=== PATIENT | male | born 1995 | race Caucasian/White ===

== ENCOUNTER 2022-03-09 18:23 | Emergency (ER) | payer SELFPAY ==
[2022-03-09 18:32] VITALS: BP 124/75; PULSE 102; RESP 20; TEMP 37.2; O2SAT 98; BMI 31.2
[2022-03-09 19:36] LABS: Appearance Urine Cloudy (Clear); Bilirubin Urine 1+ (Negative); Blood Urine 3+ (Negative); Color Urine Red (Yellow); Glucose Urine Negative (Negative); Ketones Urine Trace (Negative); Leukocyte Esterase Urine Trace (Negative); Nitrite Urine Negative (Negative); Protein Urine 3+ (Negative); Specific Gravity Urine 1.025 (1.000-1.030); Urobilinogen Urine 0.2 (0.2-1.0); pH Urine 7.5 (5.0-8.5)
[2022-03-09 19:37] LABS: RBC Urine >100 (0-2); Squamous Epithelial Cell Urine Few (None-Few); WBC Urine 25-50 (0-5)
--- NOTE | 2022-03-09 20:16 | CRLHL7_ITS ---
For Patients: As a result of the Century Cures Act, medical imaging exams and procedure reports are released immediately into your electronic medical record. You may view this report before your referring provider. If you have questions, please contact your health care provider. CLINICAL INFORMATION: Hematuria. Concern for nephrolithiasis. TECHNIQUE: Noncontrast CT of the abdomen and pelvis was obtained. Coronal and sagittal reformatted images were obtained. Radiation Dose Estimate (Total Exam DLP): 964 mGy-cm. COMPARISON: Non. FINDINGS: Lower Chest: Lung bases: 1.3 cm rounded subpleural nodule in the right middle lobe abutting the minor fissure most likely represents a focus of rounded atelectasis. Heart/Pericardium: Unremarkable. Abdomen/Pelvis: Liver: Demonstrates diffuse decreased attenuation consistent with fatty infiltration. Gallbladder: Unremarkable. Spleen: Unremarkable. Adrenal glands: Unremarkable. Kidneys: No hydronephrosis or radiopaque stone in either collecting system. Pancreas: Unremarkable. Lymph nodes: No retroperitoneal, mesenteric, inguinal, or pelvic adenopathy by CT criteria. Vascular: Abdominal aorta normal in caliber. Bowel: Evaluation is limited without enteric contrast. Grossly unremarkable. Urinary bladder: Limited evaluation due to underdistention. No gross pathology. Reproductive structures: Unremarkable for patient`s age. No abdominal/pelvis ascites or free intraperitoneal air. Musculoskeletal: Small fat containing left inguinal hernia. No focal lytic or blastic lesions. IMPRESSION: 1. No evidence for radiopaque stone in either renal collecting system. 2. 1.3 cm subpleural right middle lobe pulmonary nodule which is most consistent with a focus of rounded atelectasis. Recommend comparison with prior imaging to assure stability. If no prior imaging is available for review consider short-term follow-up chest CT in 3-6 months. Please note that all CT scans at this facility use dose modulation, iterative reconstruction, and/or weight-based dosing when appropriate to reduce radiation dose to as low as reasonably achievable. Dictated by Linden Ray MD @ 03/09/2022 9:01:55 PM (Electronically Signed)
--- NOTE | 2022-03-09 20:22 | ED.MALEGU ---
HPI - Male Genitourinary General Chief complaint: Urogenital Problems, Male Stated complaint: Abdominal pain Time Seen by Provider: 03/09/22 20:11 History of Present Illness HPI Narrative: Pt presents with a 1 day history of blood in his urine. Pt states that he has a history of urinary tract infections in the past but not recently. Pt describes mild discomfort in the suprapubic region but no other abd pain or flank pain. He has no signs of systemic infection such as fever or chills. No incontinence. No new sexual partners. Pt is uncertain how previous urinary issues have been treated. Pt has no chest pain or shortness of breath. Pain is a dullness. No radiation. No other significant symptoms. Pt seen with the aid of the sinhala interpretor. Related Data Allergies Allergy/AdvReac Type Severity Reaction Status Date / Time No Known Drug Allergies Allergy Verified 03/09/22 18:49 Review of Systems Status of ROS: Reports: 10 or more systems reviewed and unremarkable except as noted in History and below PFSH PFSH Social History Smoking Status: Never smoker Do you use any of these nicotine containing products: None Second hand tobacco smoke exposure: Yes How often do you have a drink containing alcohol: monthly or less How many standard drinks containing alcohol do you have on a typical day: 1 or 2 How often do you have six or more drinks on one occasion: Less than monthly AUDIT-C Alcohol total score: 2 Non-prescribed substance use: denies use service: No Exam Narrative: Exam Narrative: EXAM GENERAL: Patient appears comfortable and well. EYES: No scleral icterus. ENT: Tympanic membranes and oropharynx normal. THYROID: no thyroid nodules or thyromegaly. LYMPH: No supraclavicular or cervical lymphadenopathy. SKIN: Visible skin seen during exam normal or with benign process only. EXT: No dependent lower extremity pedal edema. HEART: Regular rate and rhythm with no murmurs, rubs, or gallops. LUNGS: Clear to auscultation bilaterally with no crackles or wheezes. ABD: Soft, non tender, non distended. PSYCH: Good eye contact, speech is not pressured. Const: Vital Signs, click to edit/add: Vital Signs - 24 hr 03/09/22 18:32 Temperature 98.9 F Pulse Rate [Pulse Oximeter] 102 H Respiratory Rate 20 Blood Pressure [Ri ght Upper Arm] 124/75 Pulse Oximetry 98 Oxygen Delivery Me thod Room Air Course Course Hospital Course: CT of the abd showed no significant urinary abnormalities. Labs are reassuring. Urine sent for culture. Reevaluation(s) Reevaluation #1: Feeling fine. Results reviewed with pt. Time: 22:27 Vital Signs Vital signs: Initial Vital Signs Temperature 98.9 F 03/09/22 18:32 Temperature Source Temporal Artery Scan 03/09/22 18:32 Pulse Rate 102 H 03/09/22 18:32 Pulse Rhythm 03/09/22 18:32 Respiratory Rate 20 03/09/22 18:32 Blood Pressure 124/75 03/09/22 18:32 Blood Pressure Mean 91 03/09/22 18:32 Blood Pressure Position Supine 03/09/22 18:32 Pulse Oximetry 98 03/09/22 18:32 Oxygen Delivery Method 03/09/22 18:32 Vital Signs Temperature 98.9 F 03/09/22 18:32 Pulse Rate 102 H 03/09/22 18:32 Respiratory Rate 20 03/09/22 18:32 Blood Pressure 124/75 03/09/22 18:32 Pulse Oximetry 98 03/09/22 18:32 Oxygen Delivery Method 03/09/22 18:32 Temperature 98.9 F 03/09/22 18:32 Pulse Rate 102 H 03/09/22 18:32 Respiratory Rate 20 03/09/22 18:32 Blood Pressure 124/75 03/09/22 18:32 Pulse Oximetry 98 03/09/22 18:32 Oxygen Delivery Method 03/09/22 18:32 MDM - Male Genitourinary MDM Narrative Medical decision making narrative: Pt presents with hematuria. No signs of systemic infection. Labs and CT are reassuring. Urine sent for culture. Pt treated with Cipro and will need outpt follow up incluidng cystoscopy. Differential Diagnosis Differential diagnosis: Likely urinary tract infection, urethritis and prostatitis Lab Data Labs: Lab Results 03/09/22 03/09/22 03/09/22 Range/Units 19:03 21:18 21:18 WBC 12.32 H (4.50-11.00) K/uL RBC 5.28 (4.30-5.90) m/uL Hgb 15.0 (13.5-17.5) gm/dL Hct 45.3 (37.0-53.0) % MCV 86 (80-100) fL MCH 28 (26-34) pg MCHC 33 (32-36) gm/dL RDW Coeff of Soha 12.8 (11.5-15.5) % Plt Count 308 (140-440) K/uL Neut % (Auto) 61.5 (42.0-72.0) % Lymph % (Auto) 28.1 (20-44) % [place] % (Auto) 9.1 (0.0-11.0) % Eos % (Auto) 1.0 (0.0-7.0) % Baso % (Auto) 0.1 (0.0-3.0) % Neut # (Auto) 7.60 H (1.7-7.0) K/uL Lymph # (Auto) 3.50 H (0.90-2.90) K/uL [place] # (Auto) 1.10 H (0.00-0.90) K/UL Eos # (Auto) 0.10 (0.00-0.50) K/uL Baso # (Auto) 0.00 (0.00-0.30) K/uL Abs Immat Gran (auto) 0.03 (0.00-0.30) K/uL INR 1.00 (0.91-1.10) APTT 26 (23-33) Seconds Sodium (135-149) mmol/L Potassium (3.6-5.1) mmol/L Chloride (96-114) mmol/L Carbon Dioxide (20-32) mmol/L BUN (5-24) mg/dL Creatinine (0.5-1.5) mg/dL Estimated Creat Clear Estimated GFR ml/min Glucose (60-115) mg/dL Calcium (8.4-10.6) mg/dL Total Bilirubin (0.1-1.5) mg/dL AST (12-35) U/L ALT (4-50) U/L Alkaline Phosphatase (40-150) U/L Total Protein (6.0-8.3) g/dL Albumin (3.3-5.0) g/dL Urine Color Red A (Yellow) Urine Appearance Cloudy A (Clear) Urine pH 7.5 (5.0-8.5) Ur Specific [place] 1.025 (1.000-1.030) Urine Protein 3+ A (Negative) Urine Glucose (UA) Negative (Negative) Urine Ketones Trace A (Negative) Urine Blood 3+ A (Negative) Urine Nitrite Negative (Negative) Urine Bilirubin 1+ A (Negative) Urine Urobilinogen 0.2 (0.2-1.0) Ur Leukocyte Esterase Trace A (Negative) Urine RBC >100 A (0-2) Urine WBC 25-50 A (0-5) Ur Squamous Epith Cells Few (None-Few) Urine Bacteria None (None) 03/09/22 Range/Units 21:18 WBC (4.50-11.00) K/uL RBC (4.30-5.90) m/uL Hgb (13.5-17.5) gm/dL Hct (37.0-53.0) % MCV (80-100) fL MCH (26-34) pg MCHC (32-36) gm/dL RDW Coeff of Soha (11.5-15.5) % Plt Count (140-440) K/uL Neut % (Auto) (42.0-72.0) % Lymph % (Auto) (20-44) % [place] % (Auto) (0.0-11.0) % Eos % (Auto) (0.0-7.0) % Baso % (Auto) (0.0-3.0) % Neut # (Auto) (1.7-7.0) K/uL Lymph # (Auto) (0.90-2.90) K/uL [place] # (Auto) (0.00-0.90) K/UL Eos # (Auto) (0.00-0.50) K/uL Baso # (Auto) (0.00-0.30) K/uL Abs Immat Gran (auto) (0.00-0.30) K/uL INR (0.91-1.10) APTT (23-33) Seconds Sodium 140 (135-149) mmol/L Potassium 3.8 (3.6-5.1) mmol/L Chloride 107 (96-114) mmol/L Carbon Dioxide 21 (20-32) mmol/L BUN 19 (5-24) mg/dL Creatinine 0.8 (0.5-1.5) mg/dL Estimated Creat Clear 116.14 Estimated GFR 124 ml/min Glucose 93 (60-115) mg/dL Calcium 9.7 (8.4-10.6) mg/dL Total Bilirubin 0.7 (0.1-1.5) mg/dL AST 32 (12-35) U/L ALT 43 (4-50) U/L Alkaline Phosphatase 81 (40-150) U/L Total Protein 8.4 H (6.0-8.3) g/dL Albumin 4.9 (3.3-5.0) g/dL Urine Color (Yellow) Urine Appearance (Clear) Urine pH (5.0-8.5) Ur Specific [place] (1.000-1.030) Urine Protein (Negative) Urine Glucose (UA) (Negative) Urine Ketones (Negative) Urine Blood (Negative) Urine Nitrite (Negative) Urine Bilirubin (Negative) Urine Urobilinogen (0.2-1.0) Ur Leukocyte Esterase (Negative) Urine RBC (0-2) Urine WBC (0-5) Ur Squamous Epith Cells (None-Few) Urine Bacteria (None) Discharge Plan Discharge Clinical Impression: Urinary tract infection Condition: Stable Instructions: Urinary Tract Infection in Men (ED) Additional Instructions: Cipro twice daily for 7 days Plenty of fluids Follow up with your doctor in one week. Activity Level: Activity as Tolerated Discharge Diet: Regular Follow Up/Referrals: Provider,Not a Local [Primary Care Provider] - Stand Alone Forms: [employer] Info Instructions
[2022-03-09 21:24] LABS: Basophils Percent Auto 0.1 % (0.0-3.0); Hematocrit 45.3 % (37.0-53.0); Immature Granulocytes Abs Auto 0.03 K/uL (0.00-0.30); Lymphocytes Percent Auto 28.1 % (20-44); Mean Corpuscular HGB Conc 33 gm/dL (32-36); Mean Corpuscular Hemoglobin 28 pg (26-34); Mean Corpuscular Volume 86 fL (80-100); Monocytes Percent Auto 9.1 % (0.0-11.0); Neutrophils Percent Auto 61.5 % (42.0-72.0); Platelet Count* 308 K/uL (140-440); RDW Coefficient of Variation % 12.8 % (11.5-15.5); Red Blood Count 5.28 m/uL (4.30-5.90); White Blood Count* 12.32 K/uL (4.50-11.00)
[2022-03-09 21:37] LABS: Slide Review Reflex No
[2022-03-09 21:40] LABS: Prothrombin Time 13.6 Seconds
[2022-03-09 21:41] LABS: Partial Thromboplastin Time* 26 Seconds (23-33)
[2022-03-09 22:05] LABS: Albumin* 4.9 g/dL (3.3-5.0); Chloride* 107 mmol/L (96-114); Potassium* 3.8 mmol/L (3.6-5.1); Sodium* 140 mmol/L (135-149)
[2022-03-09 22:07] LABS: Creatinine* 0.8 mg/dL (0.5-1.5); Est. Creatinine Clearance* 116.14; Estimated Glomerular Filt Rate 124 ml/min
[2022-03-09 22:08] LABS: Alanine Aminotransferase* 43 U/L (4-50); Alkaline Phosphatase* 81 U/L (40-150); Aspartate Amino Transferase* 32 U/L (12-35); Bilirubin Total* 0.7 mg/dL (0.1-1.5); Blood Urea Nitrogen* 19 mg/dL (5-24); Carbon Dioxide* 21 mmol/L (20-32); Glucose* 93 mg/dL (60-115); Total Protein* 8.4 g/dL (6.0-8.3)
[2022-03-09 22:09] LABS: Calcium* 9.7 mg/dL (8.4-10.6)
== END 2022-03-09 22:45 | disposition home or self-care (01) ==
PROVIDERS: Emergency Medicine Emergency Medical Services; Emergency Provider Internal Medicine
DX: N39.0 Urinary tract infection, site not specified (principal); R31.0 Gross hematuria
CPT/HCPCS: 36415; 74176; 80053; 81001; 81015; 85025; 85610; 85730; 87086; 99283; 99284